=== PATIENT | male | born 1950 | race Caucasian/White ===

== ENCOUNTER 2018-07-07 08:41 | Emergency (ER) | payer MEDICARE, OTHER ==
[~2018-07-07] VITALS: Ht 172.7 cm; Wt 116.6 kg
[~2018-07-07 08:41] MED LIST: ASPI-630 PO; ATOR40TA59 PO; METO50TA29 PO; NITR0.4T SL; RANI300C PO; VARD20TA2 PO
[2018-07-07] MEDS ORDERED: MELO7.5T29 PO (09:26)
[2018-07-07] MEDS ORDERED: ORPH-16 PO (09:26)
[2018-07-07] MEDS ORDERED: METH4TAB2 PO (09:26)
--- NOTE | 2018-07-07 09:26 | PHYS DOC ---
Past History Past Medical History: Cancer, Heart Disease Past Surgical History: Other Alcohol Use: Heavy Drug Use: None Adult General Chief Complaint Chief Complaint: BACK PAIN OR INJURY HPI HPI Patient is a 67 year old male who presents with mid back pain. Patient has a history of this occurring intermittently over the past several years with no identifiable trigger. This particular episode has been going on since yesterday. Increased pain with movement. No loss of bowel or bladder control, no weakness, no fever, no trauma. Patient normally gets relief with a Medrol Dosepak. He does not have one currently and that is the reason that he is at the emergency department.[] Review of Systems Review of Systems Constitutional: Denies fever or chills [] Eyes: Denies change in visual acuity, redness, or eye pain [] HENT: Denies nasal congestion or sore throat [] Respiratory: Denies cough or shortness of breath [] Cardiovascular: No chest pain or palpitations[] GI: Denies abdominal pain, nausea, vomiting, bloody stools or diarrhea [] : Denies dysuria or hematuria [] Musculoskeletal: See history of present illness[] Integument: Denies rash or skin lesions [] Neurologic: Denies headache, focal weakness or sensory changes [] Endocrine: Denies polyuria or polydipsia [] All other systems were reviewed and found to be within normal limits, except as documented in this note. Allergies Allergies Allergies Coded Allergies Type Severity Reaction Last Updated Verified No Known Drug Allergies 08/03/15 No Physical Exam Physical Exam Constitutional: Well developed, well nourished, no acute distress, non-toxic appearance. [] HENT: Normocephalic, atraumatic, bilateral external ears normal, oropharynx moist, no oral exudates, nose normal. [] Eyes: PERRLA, EOMI, conjunctiva normal, no discharge. [] Neck: Normal range of motion, no tenderness, supple, no stridor. [] Cardiovascular:Heart rate regular rhythm, no murmur [] Lungs & Thorax: Bilateral breath sounds clear to auscultation [] Abdomen: Bowel sounds normal, soft, no tenderness, no masses, no pulsatile masses. [] Skin: Warm, dry, no erythema, no rash. [] Back: no CVA tenderness. Patient has thoracic paraspinal musculature tenderness to palpation. This recreates his pain. Left greater than right [] Extremities: No tenderness, no cyanosis, no clubbing, ROM intact, no edema. [] Neurologic: Alert and oriented X 3, normal motor function, normal sensory function, no focal deficits noted. [] Psychologic: Affect normal, judgement normal, mood normal. [] EKG EKG [] Radiology/Procedures Radiology/Procedures [] Course & Med Decision Making Course & Med Decision Making Pertinent Labs and Imaging studies reviewed. (See chart for details) Medical decision making: Patient defers imaging since he has had this previously. No evidence of neuro or vascular compromise. No evidence of pneumonia as the trigger.[] Dragon Disclaimer Dragon Disclaimer This electronic medical record was generated, in whole or in part, using a voice recognition dictation system. Departure Departure: Impression: Primary Impression: Thoracic back pain Disposition: HOME, SELF-CARE Condition: GOOD Referrals: TOYIN VARELA DO (PCP) Follow up in 2 days Patient Instructions: Back Pain, Adult Additional Instructions: Follow-up with your regular doctor in 2 days. Return to the emergency department if worsening pain, weakness, loss of bowel or bladder control, fever of more than 101, or any other concerns Scripts Orphenadrine Citrate (ORPHENADRINE CITRATE) 100 Mg Tablet.er 100 MG PO BID for BACK PAIN, #20 TAB.SR Prov: DEEPALI BECKHAM DO 07/07/18 Meloxicam (MELOXICAM) 7.5 Mg Tablet 7.5 MG PO DAILY for PAIN, #20 TAB Prov: DEEPALI BECKHAM DO 07/07/18 Methylprednisolone (MEDROL) 4 Mg Tab.ds.pk 1 PKG PO UD for BACK PAIN, #2 PKG Prov: KRISTENJYOTIELIZABETHDEEPALI CORNELL 07/07/18 Problem Qualifiers Primary Impression: Thoracic back pain Chronicity: acute Back pain laterality: left Qualified Codes: M54.6 - Pain in thoracic spine BRIANDEEPALI JOHNSON Jul 07, 2018 09:26
[2018-07-07 09:35] VITALS: BP 120/85
== END 2018-07-07 09:35 | disposition home or self-care (01) ==
LOC: ER 08:52
DX: M54.6 Pain in thoracic spine (principal); F10.20 Alcohol dependence, uncomplicated; Z86.79 Personal history of other diseases of the circulatory system; Y90.9 Presence of alcohol in blood, level not specified
CPT/HCPCS: 99283

== ENCOUNTER 2021-07-11 23:48 | Emergency (ER) | payer MEDICARE, OTHER ==
[~2021-07-11] VITALS: Ht 198.1 cm; Wt 114.9 kg
[~2021-07-11 23:48] MED LIST changes: +MELO7.5T29 PO; +METH4TAB2 PO; -NITR0.4T SL; +NITR0.4T24 SL; +ORPH-16 PO
--- NOTE | 2021-07-12 00:09 | PHYS DOC ---
Past History Past Medical History: CAD, Cancer, Heart Disease Past Surgical History: Other Alcohol Use: Heavy Drug Use: None Adult General Chief Complaint Chief Complaint: NOSEBLEED HPI HPI Patient is a 70-year-old male who presents with nosebleed. States he has had a couple nosebleeds in the past but not very often. Denies any recent travels, traumas, illnesses, fevers, nose pain pain or trouble swallowing, chest pain, shortness of breath, abdominal pain, nausea, vomiting, dysuria, hematuria, blood in the stool or diarrhea. Review of Systems Review of Systems Review of systems otherwise unremarkable except noted in HPI Allergies Allergies Allergies Coded Allergies Type Severity Reaction Last Updated Verified No Known Drug Allergies 08/03/15 No Physical Exam Physical Exam Constitutional: Well developed, well nourished, no acute distress, non-toxic appearance. [] HENT: Normocephalic, atraumatic, bilateral external ears normal, oropharynx moist, no oral exudates, nose normal, dried blood in bilateral nares, no trauma, nares patent bilaterally. [] Eyes: conjunctiva normal, no discharge. [] Neck: Normal range of motion, no tenderness, supple, no stridor. [] Cardiovascular:Heart rate regular rhythm, no murmur [] Lungs & Thorax: Bilateral breath sounds clear to auscultation [] Skin: Warm, dry, no erythema, no rash. [] Extremities: No tenderness, no cyanosis, no clubbing, ROM intact, no edema. [] Neurologic: Alert and oriented X 3, normal motor function, normal sensory function, no focal deficits noted. [] Psychologic: Affect normal, judgement normal, mood normal. [] EKG EKG [] Radiology/Procedures Radiology/Procedures [] Heart Score C/O Chest Pain: No Risk Factors: Risk Factors: DM, Current or recent (<one month) smoker, HTN, HLP, family history of CAD, obesity. Risk Scores: Risk Factors: DM, Current or recent (<one month) smoker, HTN, HLP, family histo ry of CAD, obesity. Course & Med Decision Making Course & Med Decision Making Patient is a 70-year-old male who presents with epistaxis Vital signs . Physical exam noted above. Direct pressure placed with and without Afrin. On reassessment bleeding had stopped. Discussed management at home. Advised to follow-up with primary care physician. Gave return precautions to the ED. Patient grateful, verbalized understanding and agreed with plan of discharge. Dragon Disclaimer Dragon Disclaimer This electronic medical record was generated, in whole or in part, using a voice recognition dictation system. Departure Departure: Impression: Primary Impression: Epistaxis Disposition: HOME / SELF CARE / HOMELESS Condition: GOOD Referrals: TOYIN VARELA DO (PCP) Patient Instructions: Nosebleed Additional Instructions: Thank you for coming into the emergency department tonight and allowing us to take care of you. Please read the attached information carefully go back over some of the things we discussed. Please practice the techniques that we discussed for nosebleed including direct pressure, and Afrin. Please follow-up with your primary care physician as soon as you can update on your ED visit and set up a follow-up. Please come back with new or concerning symptoms as discussed MANI WHALEN MD Jul 12, 2021 00:08
[2021-07-12] MEDS ORDERED: OXYMETAZOLINE 0.05% NASAL SPRAY 30ML BOTTLE. NS ONE (00:15)
[2021-07-12] MEDS ORDERED: CALC-56 PO (01:04)
[2021-07-12] MEDS ORDERED: POLY17PO5 PO (01:04)
[2021-07-12] MEDS ORDERED: NITR0.4T22 SL (01:04)
[2021-07-12] MEDS ORDERED: SILD100T PO (01:04)
[2021-07-12] MEDS ORDERED: PANT40TA3 PO (01:04)
[2021-07-12] MEDS ORDERED: ASCO500C PO (01:04)
[2021-07-12] MEDS ORDERED: CHOL10004 PO (01:04)
[2021-07-12] MEDS ORDERED: BISA5TAB4 PO (01:04)
[2021-07-12 01:09] VITALS: BP 130/76
== END 2021-07-12 01:15 | disposition home or self-care (01) ==
LOC: ER 23:48
DX: R04.0 Epistaxis (principal); I25.10 Atherosclerotic heart disease of native coronary artery without angina pectoris; F10.20 Alcohol dependence, uncomplicated; Y90.9 Presence of alcohol in blood, level not specified
CPT/HCPCS: 30901; 99282; 99284